=== PATIENT | female | born 1955 | race Caucasian/White ===

== ENCOUNTER 2018-02-22 21:41 | Emergency (ER) | payer SELFPAY ==
[~2018-02-22] VITALS: Ht 170.2 cm; Wt 60.0 kg
[~2018-02-22 21:41] MED LIST: Z.0.NO CURRENT MEDS
[2018-02-22 22:21] VITALS: BP 134/69; PULSE 93; RESP 16; TEMP 98.5; O2SAT 98
[2018-02-22] MEDS ORDERED: ACETAMINOPHEN 1000 MG/100 ML 65 ML IV ONE (22:45)
--- NOTE | 2018-02-22 23:44 | PD ---
HPI Chief Complaint: Hip Injury Time Seen by Provider: 22:27 Travel History International Travel<30 days: No Contact w/Intl Traveler<30days: No Traveled to known affect area: No History of Present Illness HPI Patient is a 62-year-old female presenting to the emergency department for evaluation of right hip pain after she sustained a mechanical fall earlier this afternoon. Patient states she was playing with her cat and was running, subsequently snagging her left foot on a thin metal pipe that she did not see. She reports that she fell forward hitting her head on the concrete and landing on her right side, causing pain to her right lower leg and right hip. Patient is able to ambulate and bear weight. She reports her pain is a 7 out of 10, the pain is improved since she initially sustained a fall. Pain is described as sore and aching. Pain is exacerbated with walking. She denies any loss of consciousness, she states that she was able to get back up on her own. She does report drinking 2 beers this afternoon. Patient denies any headache, dizziness, nausea, vomiting, chest pain, shortness of breath. PFSH Past Medical History Medical History: Denies Significant Hx Influenza Vaccination: No Menopausal: Yes Tubal Ligation: Yes Social History Alcohol Use: Yes (OCCASIONALLY BEER) Tobacco Use: Yes Substance Use: No Allergies-Medications (Allergen,Severity, Reaction): Coded Allergies: No Known Allergies (Verified Adverse Reaction, Unknown, 02/22/18) Reported Meds & Prescriptions Reported Meds & Active Scripts Active No Active Prescriptions or Reported Medications Review of Systems Except as stated in HPI: all other systems reviewed are Neg Musculoskeletal: Positive: Myalgias, Arthralgias, Pain Skin: Positive Other, No Change in Pigmentation, No Lesions Physical Exam Narrative GENERAL: Well-developed, well-nourished, alert elderly female. Presenting in no acute distress. Patient smells of alcohol. SKIN: Warm and dry. Abrasion to left forehead HEAD: Atraumatic. Normocephalic. EYES: Pupils equal and round. No scleral icterus. No injection or drainage. ENT: No nasal bleeding or discharge. Mucous membranes pink and moist. NECK: Trachea midline. No JVD. CARDIOVASCULAR: Regular rate and rhythm. RESPIRATORY: No accessory muscle use. Clear to auscultation. Breath sounds equal bilaterally. GASTROINTESTINAL: Abdomen soft, non-tender, nondistended. Hepatic and splenic margins not palpable. MUSCULOSKELETAL: Extremities without clubbing, cyanosis, or edema. No obvious deformities. NEUROLOGICAL: Awake and alert. No obvious cranial nerve deficits. Motor grossly within normal limits. Five out of 5 muscle strength in the arms and legs. Normal speech. PSYCHIATRIC: Appropriate mood and affect; insight and judgment normal. Data Data Last Documented VS Vital Signs Date Time Temp Pulse Resp B/P (MAP) Pulse Ox O2 Delivery O2 Flow Rate FiO2 02/22/18 22:21 98.5 93 16 134/69 (90) 98 Orders Orders Alcohol (Ethanol) (02/22/18 22:37) Hip, Uni(Ap&Lat) W Ap Pelvis (02/22/18 ) Tibia/Fibula (Ap/Lat) (02/22/18 ) Acetaminophen 1000 Mg/100 Ml (Ofirmev 10 (02/22/18 22:45) Iv Access Insert/Monitor (02/22/18 22:37) Ct Brain W/O Iv Contrast(Rout) (02/23/18 ) Labs Laboratory Tests Test 02/22/18 23:10 Ethyl Alcohol Level 57 MG/DL MDM Medical Decision Making Medical Screen Exam Complete: Yes Emergency Medical Condition: Yes Interpretation(s) Last Impressions Head CT 02/23/18 0000 Signed Impressions: Service Date/Time: Friday, February 23, 2018 00:55 - CONCLUSION: No acute disease. Rogers Jay Jr., MD Tibia/Fibula X-Ray 02/22/18 0000 Signed Impressions: Service Date/Time: February 23:39 - CONCLUSION: Unremarkable examination of the left tibia. Rogers Jay Jr., MD Hip and Pelvis X-Ray 02/22/18 0000 Signed Impressions: Service Date/Time: February 23:36 - CONCLUSION: Unremarkable examination of the left hip. Rogers Jay Jr., MD Laboratory Tests Test 02/22/18 23:10 Ethyl Alcohol Level 57 MG/DL Vital Signs Date Time Temp Pulse Resp B/P (MAP) Pulse Ox O2 Delivery O2 Flow Rate FiO2 02/22/18 22:21 98.5 93 16 134/69 (90) 98 Differential Diagnosis Fracture versus sprain versus strain versus contusion versus less likely hemorrhage versus other Narrative Course Patient is a 62-year-old female presenting for evaluation of hip pain after she sustained a mechanical fall. Patient smells of alcohol, she reported to beers earlier in the day. Will check alcohol level and an x-ray of the hip as well as the tibia. If there is no suspicion of a fracture we will proceed with the CT scan of the brain. Patient has no focal deficits on exam. She is ambulatory and can bear weight. Alcohol level is 57 CT scan the brain shows no acute abnormalities X-ray of the left hip and left tibia/fibula is with no acute abnormalities. Patient is encouraged to apply warm heat to the affected area, continue range of motion exercises take acetaminophen or ibuprofen as needed and as directed for pain. She should follow-up with a primary doctor or return to emergency department any new or worsening symptoms. Patient stable for discharge. Diagnosis Primary Impression: Hip pain Qualified Codes: M25.552 - Pain in left hip Additional Impressions: Fall Qualified Codes: W19.XXXA - Unspecified fall, initial encounter Head injury without concussion or intracranial hemorrhage Qualified Codes: S09.90XA - Unspecified injury of head, initial encounter Alcohol intoxication Qualified Codes: F10.920 - Alcohol use, unspecified with intoxication, uncomplicated Referrals: [facility] Primary Care Physician Patient Instructions: General Instructions, Head Injury (ED), Hip Pain (ED) Additional Instructions: Follow-up with your primary doctor Apply warm heat to affected area, continue range of motion exercises, avoid bed rest, avoid exacerbating activities Take [id number] acetaminophen or ibuprofen as needed and as directed for pain Return to emergency department for any new or worsening symptoms Avoid excessive intake of alcohol Med/Other Pt SpecificInfo: No Meds Exist/No RX given Scripts No Active Prescriptions or Reported Meds Disposition: 01 DISCHARGE HOME Condition: Stable Josette Rodriguez February 22, 2018 23:44
--- NOTE | 2018-02-23 00:07 | RADRPT ---
EXAM DATE/TIME: 02/22/2018 23:36 [facility] COMPARISON: No previous studies available for comparison. INDICATIONS : Patient complains of left hip pain status post fall. MEDICAL HISTORY : None. SURGICAL HISTORY : None. ENCOUNTER: Initial ACUITY: 1 day PAIN SCORE: 7/10 LOCATION: Left Hip FINDINGS: Examination of the left hip was performed with AP Pelvis. The primary and secondary trabecular patte rn of the femoral neck is intact. The hip joint is of normal width without significant sclerosis or bony hypertrophy. The acetabulum is grossly intact. CONCLUSION: Unremarkable examination of the left hip. Rogers Jay Jr., MD on February 23, 2018 at 0:06 Board Certified Radiologist. This report was verified electronically.
--- NOTE | 2018-02-23 00:08 | RADRPT ---
EXAM DATE/TIME: 02/22/2018 23:39 [facility] COMPARISON: No previous studies available for comparison. INDICATIONS : Patient complains of left Tib/Fib pain status post fall. MEDICAL HISTORY : None. SURGICAL HISTORY : None. ENCOUNTER: Initial ACUITY: 1 day PAIN SCORE: 7/10 LOCATION: Left Tib/Fib FINDINGS: Two view examination of the left tibia demonstrates no evidence of fracture or dislocation. Bony min eralization is normal. The soft tissue structures are intact. CONCLUSION: Unremarkable examination of the left tibia. Rogers Jay Jr., MD on February 23, 2018 at 0:06 Board Certified Radiologist. This report was verified electronically.
--- NOTE | 2018-02-23 01:20 | RADRPT ---
EXAM DATE/TIME: 02/23/2018 00:55 [facility] COMPARISON: No previous studies available for comparison. INDICATIONS : Trauma, fall. RADIATION DOSE: 56.35 CTDIvol (mGy) MEDICAL HISTORY : None SURGICAL HISTORY : None. ENCOUNTER: Initial ACUITY: 1 day PAIN SCALE: 5/10 LOCATION: cranial TECHNIQUE: Multiple contiguous axial images were obtained of the head. Using automated exposure control and adj ustment of the mA and/or kV according to patient size, radiation dose was kept as low as reasonably a chievable to obtain optimal diagnostic quality images. DICOM format image data is available electro nically for review and comparison. FINDINGS: CEREBRUM: The ventricles are normal for age. No evidence of midline shift, mass lesion, hemorrhage or acute in farction. No extra-axial fluid collections are seen. POSTERIOR FOSSA: The cerebellum and brainstem are intact. The 4th ventricle is midline. The cerebellopontine angle i s unremarkable. EXTRACRANIAL: The visualized portion of the orbits is intact. SKULL: The calvaria is intact. No evidence of skull fracture. CONCLUSION: No acute disease. Rogers Jay Jr., MD on February 23, 2018 at 1:17 Board Certified Radiologist. This report was verified electronically.
[2018-02-23 06:47] VITALS: BP 130/68
== END 2018-02-23 06:49 | disposition home or self-care (01) ==
LOC: NEPD 21:41
DX: M25.551 Pain in right hip (principal); S09.90XA Unspecified injury of head, initial encounter; F10.920 Alcohol use, unspecified with intoxication, uncomplicated; W19.XXXA Unspecified fall, initial encounter; Y90.3 Blood alcohol level of 60-79 mg/100 ml; Z72.0 Tobacco use
CPT/HCPCS: 70450; 73502; 73590; 80307; 96374; 99285; J0131

== ENCOUNTER 2018-05-18 14:45 | Inpatient (IN) ==
--- NOTE | 2018-05-18 18:45 | XR ---
EXAM DATE: 05/18/2018 6:40 PM EDT AGE/SEX: 63 years / Female INDICATIONS: Inflammation. Swelling. Fall. CLINICAL DATA: This is the patient's initial encounter. Patient reports that signs and symptoms have been present for 1 day and indicates a pain score of 10/10. MEDICAL/SURGICAL HISTORY: None. None. COMPARISON: [facility] [place]FIBUL[place] LEFT (AP/LAT), 02/22/2018. . FINDINGS: There is an acute lateral tibial plateau fracture with mild depression and lateral downsloping. Large lipohemarthrosis present. No other acute fracture. There is a tiny, old avulsion fracture of the fibular styloid. CONCLUSION: Acute lateral tibial plateau fracture with mild compression and lateral downsloping. Electronically signed by: Collin Diamond MD 05/18/2018 6:44 PM EDT
--- NOTE | 2018-05-18 19:53 | XR ---
EXAM DATE: 05/18/2018 7:50 PM EDT AGE/SEX: 63 years / Female INDICATIONS: Fall. Left rib pain. CLINICAL DATA: This is the patient's initial encounter. Patient reports that signs and symptoms have been present for 1 day and indicates a pain score of 5/10. MEDICAL/SURGICAL HISTORY: None. None. COMPARISON: No prior exams available for comparison. FINDINGS: A single AP view of the chest demonstrates the lungs to be symmetrically aerated without evidence of mass, infiltrate or effusion. The cardiomediastinal contours are unremarkable. Osseous structures a re grossly intact. CONCLUSION: No acute cardiopulmonary disease demonstrated. Electronically signed by: Collin Diamond MD 05/18/2018 7:51 PM EDT
[2018-05-18 20:42] LABS: Baso # (Auto) 0.1 th/mm3 (0.0-0.2); Baso % (Auto) 0.5 % (0.0-2.0); Eos # (Auto) 0.3 th/mm3 (0.0-0.4); Eos % (Auto) 2.8 % (0.0-4.0); Hematocrit 35.8 % (35.0-46.0); Hemoglobin 11.9 gm/dL (11.6-15.3); Lymph % (Auto) 8.8 % (9.0-44.0); Mean Corpuscular HGB Conc 33.4 % (32.0-36.0); Mean Corpuscular Hemoglobin 30.9 pg (27.0-34.0); Mean Corpuscular Volume 92.6 fL (80.0-100.0); Mean Platelet Volume 7.9 fL (7.0-11.0); Mono # (Auto) 0.9 th/mm3 (0.0-0.9); Mono % (Auto) 8.7 % (0.0-8.0); Neut # (Auto) 8.6 th/mm3 (1.8-7.7); Neut % (Auto) 79.2 % (16.0-70.0); Platelet Count 322 th/mm3 (150-450); Red Blood Count 3.86 mil/mm3 (4.00-5.30); White Blood Count 10.9 th/mm3 (4.0-11.0)
[2018-05-18 20:52] LABS: Activated Partial Thrombo Time 24.7 sec (24.3-30.1); Prothrombin Time 10.3 sec (9.8-11.6)
[2018-05-18] MEDS ORDERED: Bisacodyl 10 MG Supp RECTAL PRN (20:57)
[2018-05-18] MEDS ORDERED: Temazepam 15 MG Capsule PO PRN (20:57)
--- NOTE | 2018-05-18 20:59 | P.HPIM ---
History of Present Illness Primary Care Physician: No Primary Care Physician History of Present Illness: This is a 63-year-old female with no significant PMH who presented to the ER with left knee pain after fall. Patient was seen in the ER earlier today for complaints of head lice and was d/c'd on Bactrim, states she was walking home when she tripped over a pipe on the sidewalk. No head trauma or LOC. Reports severe left knee pain, 8/10, non-radiating, worse w/ movement. States she took 2 Tylenol prior to arrival w/ improvement. BP 159/76, HR 92, O2 sat 100% on RA , Afebrile. CBC essentially unremarkable. INR 1.0. Chemistry unremarkable except for GFR 83. Knee X-ray with acute lateral tibial plateau fracture with mild compression and lateral downsloping. CXR no acute findings. Dr. Rangel consulted, plan is for surgical intervention in am. - Diagnosis (1) Fall (2) Knee fracture, left (3) Head lice Review of Systems PAST FAMILY HISTORY: Reviewed. No h/o DM or CAD All other systems reviewed negative except as stated in HPI PMFSH - History History Provided By: Patient - Family History Family History: Family History (Last Updated 05/18/18 @ 22:26 by Fay Roldan MD) Other Family history normal - Tobacco History Tobacco Use In Past 30 Days: Yes Smoking Status: Smoker, status unknown Tobacco Type: Cigarettes - Alcohol History How Often Do You Have a Drink Containing Alcohol: 4 or more times a week - Substance Use History Substance History: No History of Abuse - Travel History Recent Travel in the [place] Within the Last 8 Weeks: No Recent Travel Out of the Country Within the Last 8 Weeks: No - Immunization History Tetanus Immunization: Unsure Hx Influenza Vaccine This Season: No Medications and Allergies Active Medications: Active Medications Acetaminophen (Tylenol) 650 mg PO Q4H PRN PRN Reason: Temp > 100.4 Hydrocodone Bitart/Acetaminophen (Lissie 5/325) 1 tab PO Q4H PRN PRN Reason: PAIN 3-5 Al Hydroxide/Mg Hydroxide (Milk Of Magnesia Liq) 30 ml PO Q12H PRN PRN Reason: Mild Constipation Bisacodyl (Dulcolax Supp) 10 mg RECTAL DAILY PRN PRN Reason: SEVERE CONSITIPATION Sodium Chloride (Ns Inj) 1,000 mls @ 100 mls/hr IV.CONT .Q10H CAMILA Lactulose (Lactulose Liq) 30 ml PO DAILY PRN PRN Reason: SEVERE CONSITIPATION Morphine Sulfate (Morphine Inj) 2 mg IV.PUSH Q4H PRN PRN Reason: PAIN 6-10 Ondansetron HCl (Zofran Inj) 4 mg IV.PUSH Q6H PRN PRN Reason: NAUSEA OR VOMITING Permethrin (Elimite 5% Cream) 1 applicatio TOPICAL ONCE ONE Stop: 05/18/18 20:56 Senna/Docusate Sodium (Annita-Colace) 1 tab PO BID CAMILA Sennosides (Senokot) 17.2 mg PO Q12H PRN PRN Reason: Moderate Constipation Sodium Chloride (Ns Flush) 2 ml IV.FLUSH UNSCH PRN PRN Reason: FLUSH AFTER USING IV ACCESS Temazepam (Restoril) 15 mg PO HS PRN PRN Reason: INSOMNIA Allergies Allergy/AdvReac Type Severity Reaction Status Date / Time No Known Allergies Allergy Verified 05/18/18 18:29 Exam Vital signs: Vital Signs 05/18/18 16:23 05/18/18 20:30 Temperature 98.3 F Pulse Rate 92 H Respiratory Rate 18 Blood Pressure 159/76 H Pulse Oximetry 100 98 Narrative: PE: GENERAL: Very pleasant middle-aged white female in no acute distress. HEENT: PERRLA, EOMI. No scleral icterus or conjunctival pallor. No lid lag or facial droop. CARDIOVASCULAR: Regular rate and rhythm. No obvious murmurs to auscultation. No chest tenderness to palpation. RESPIRATORY: No obvious rhonchi or wheezing. Clear to auscultation. Breath sounds equal bilaterally. GASTROINTESTINAL: Abdomen soft, non-tender, nondistended. BS normal. MUSCULOSKELETAL: Extremities without clubbing, cyanosis, or edema. No obvious deformities. Decreased ROM of LLE due to pain. NEUROLOGICAL: Awake, alert and oriented x4. No focal neurologic deficits. Moving both upper and lower extremities spontaneously. Results - Labs CBC & Chem 7: 05/18/18 20:25 05/18/18 20:25 Labs: Short CBC 05/18/18 Range/Units 20:25 WBC 10.9 (4.0-11.0) th/mm3 Hgb 11.9 (11.6-15.3) gm/dL Hct 35.8 (35.0-46.0) % Plt Count 322 (150-450) th/mm3 - Imaging Impressions Knee X-Ray 05/18/18 00:00 CONCLUSION: Acute lateral tibial plateau fracture with mild compression and lateral downsloping. Chest X-Ray 05/18/18 19:28 CONCLUSION: No acute cardiopulmonary disease demonstrated. Caprini VTE Risk Assessment Caprini VTE Risk Assessment: No/Low Risk (score <= 1) Caprini Risk Assessment Model: Point Value = 1 Point Value = 2 Point Value = 3 Point Value = 5 Age 41-60 Minor surgery BMI > 25 kg/m2 Swollen legs Varicose veins or History of unexplained or recurrent spontaneous Oral contraceptives or hormone replacement Sepsis (< 1 month) Serious lung disease, including pneumonia (< 1 month) Abnormal pulmonary function Acute myocardial infarction Congestive heart failure (< 1 month) History of inflammatory bowel disease Medical patient at bed rest Age 61-74 Arthroscopic surgery Major open surgery (> 45 min) Laparoscopic surgery (> 45 min) Malignancy Confined to bed (> 72 hours) Immobilizing plaster cast Central venous access Age >= 75 History of VTE Family history of VTE Factor V Leiden Prothrombin [id number] Lupus anticoagulant Anticardiolipin antibodies Elevated serum homocysteine Heparin-induced thrombocytopenia Other congenital or acquired thrombophilia Stroke (< 1 month) Elective arthroplasty Hip, pelvis, or leg fracture Acute spinal cord injury (< 1 month) Prophylaxis Regimen: Total Risk Factor Score Risk Level Prophylaxis Regimen 0-1 Low Early ambulation 2 Moderate Order ONE of the following: *Sequential Compression Device (SCD) *Heparin 5000 units SQ BID 3-4 Higher Order ONE of the following medications: *Heparin 5000 units SQ TID *Enoxaparin/Lovenox 40 mg SQ daily (WT < 150 kg, CrCl > 30 mL/min) *Enoxaparin/Lovenox 30 mg SQ daily (WT < 150 kg, CrCl > 10-29 mL/min) *Enoxaparin/Lovenox 30 mg SQ BID (WT < 150 kg, CrCl > 30 mL/min) AND/OR *Sequential Compression Device (SCD) 5 or more Highest Order ONE of the following medications: *Heparin 5000 units SQ TID (Preferred with Epidurals) *Enoxaparin/Lovenox 40 mg SQ daily (WT < 150 kg, CrCl > 30 mL/min) *Enoxaparin/Lovenox 30 mg SQ daily (WT < 150 kg, CrCl > 10-29 mL/min) *Enoxaparin/Lovenox 30 mg SQ BID (WT < 150 kg, CrCl > 30 mL/min) AND *Sequential Compression Device (SCD) Assessment and Plan - Assessment (1) Fall Code(s): W19.XXXA - Unspecified fall, initial encounter Status: Acute (2) Knee fracture, left Status: Acute (3) Head lice Code(s): B85.0 - Pediculosis due to Pediculus humanus capitis Status: Acute - Plan A/P: 1. Fall: s/p mechanical fall, no head trauma or LOC, no other injuries reported. 2. Left Knee Fx: X-ray w/ acute lateral tibial plateau fracture with mild compression and lateral downsloping, images reviewed. Dr. Rangel consulted, plan is for surgical intervention in a.m. NPO, IVF, analgesics/antiemetics as needed. 3. Head Lice: seen in ER earlier today for c/o head lice, +live lice noted on exam. D/c'd on Bactrim, will give Permethrin. 4. DVT Prophylaxis: Anticoagulation post op 5. Social work for d/c planning as needed 6. Case discussed w/ ER physician at length, labs/records/imaging reviewed by me.
--- NOTE | 2018-05-18 21:00 | ED ---
HPI General Chief Complaint: Extremity Injury, Lower Stated Complaint: fall Time Seen by Provider: 05/18/18 18:41 Source: patient Mode of arrival: ambulatory Limitations: no limitations History of Present Illness HPI Narrative: 63 yo f patient evidently struck her left leg into a pipe while walking along a sidewalk and then fell to the ground. This happened several hours prior to ER arrival. She has had continuous pain throughout the course of the day which has gradually worsened. The patient was able to ambulate after the injury and ambulated to the ED. No other injury to report. MD complaint: knee injury Onset (ago): hour(s) (8) Type of Injury: blunt Severity: moderate Relieving factors: immobilization Exacerbating factors: weight bearing, movement and palpation Context: fall and direct blow Associated symptoms: numbness Other symptoms: none Related Data Previous Rx's Medication Instructions Recorded sulfamethoxazole-trimethoprim 1 tab PO BID 10 Days #20 tab 05/18/18 [Bactrim DS] Allergies Allergy/AdvReac Type Severity Reaction Status Date / Time No Known Allergies Allergy Verified 05/18/18 18:29 Review of Systems ROS: all other systems reviewed are negative PMFSH Social History Social History Substance History: No History of Abuse Smoking Status: Smoker, status unknown Tobacco Type: Cigarettes How Often Do You Have a Drink Containing Alcohol: 4 or more times a week Recent Travel in [facility] within the Last 8 Weeks: No Recent Out of Country Travel within the Last 8 Weeks: No Immunization History Tetanus Immunization: Unsure Hx Influenza Vaccine This Season: No Exam Narrative Exam Narrative: GENERAL: 63-year-old female pleasant well-nourished well- developed SKIN: Focused skin assessment warm/dry. HEAD: Atraumatic. Normocephalic. EYES: Pupils equal and round. No scleral icterus. No injection or drainage. ENT: No nasal bleeding or discharge. Mucous membranes pink and moist. NECK: Trachea midline. No JVD. CARDIOVASCULAR: Regular rate and rhythm. No murmur appreciated. RESPIRATORY: No accessory muscle use. Clear to auscultation. Breath sounds equal bilaterally. GASTROINTESTINAL: Abdomen soft, non-tender, nondistended. Hepatic and splenic margins not palpable. MUSCULOSKELETAL: Tenderness palpation overlying the patella and tibial plateau on the left side. There is generalized swelling involving the left knee. Distal pulses are intact. The patient is ambulatory with antalgic gout. NEUROLOGICAL: Awake and alert. No obvious cranial nerve deficits. Motor grossly within normal limits. Normal speech. PSYCHIATRIC: Appropriate mood and affect; insight and judgment normal. Course Initial Documented Vital Signs Temperature 98.3 F 05/18/18 16:23 Pulse Rate 92 H 05/18/18 16:23 Respiratory Rate 18 05/18/18 16:23 Blood Pressure 159/76 H 05/18/18 16:23 Pulse Oximetry 100 05/18/18 16:23 Last Documented Vital Signs Temperature 98.3 F 05/18/18 16:23 Pulse Rate 92 H 05/18/18 16:23 Respiratory Rate 18 05/18/18 16:23 Blood Pressure 159/76 H 05/18/18 16:23 Pulse Oximetry 98 05/18/18 20:30 Medical Decision Making MDM Narrative Medical decision making narrative: Patient has a tibial plateau fracture. She will be admitted for operative repair. Discussed with Dr. Juan Carlos Milligan's NUPUR. Case discussed with Dr. Roldan for the hospitalist service. Immobilizer added. CT knee added per ortho request. Lab Data Lab results reviewed: Yes I reviewed the patient's lab results. Lab results narrative: Available labs were reviewed. Major abnormality involving competence of panel is considered low probability. Result diagrams: 05/18/18 20:25 05/18/18 20:25 Lab Results 05/18/18 05/18/18 Range/Units 20:25 20:25 WBC 10.9 (4.0-11.0) th/mm3 RBC 3.86 L (4.00-5.30) mil/mm3 Hgb 11.9 (11.6-15.3) gm/dL Hct 35.8 (35.0-46.0) % MCV 92.6 (80.0-100.0) fL MCH 30.9 (27.0-34.0) pg MCHC 33.4 (32.0-36.0) % RDW 13.0 (11.6-17.2) % Plt Count 322 (150-450) th/mm3 MPV 7.9 (7.0-11.0) fL Neut % (Auto) 79.2 H (16.0-70.0) % Lymph % (Auto) 8.8 L (9.0-44.0) % [place] % (Auto) 8.7 H (0.0-8.0) % Eos % (Auto) 2.8 (0.0-4.0) % Baso % (Auto) 0.5 (0.0-2.0) % Neut # (Auto) 8.6 H (1.8-7.7) th/mm3 Lymph # (Auto) 1.0 (1.0-4.8) th/mm3 [place] # (Auto) 0.9 (0.0-0.9) th/mm3 Eos # (Auto) 0.3 (0.0-0.4) th/mm3 Baso # (Auto) 0.1 (0.0-0.2) th/mm3 WBC Differential . Differential Comment Auto diff final PT 10.3 (9.8-11.6) sec INR 1.0 Ratio APTT 24.7 (24.3-30.1) sec Imaging Data Attestation: I personally reviewed and interpreted this imaging study as follows : My impression: Tibial plateau fracture present Radiologist's impression: Knee X-Ray 05/18/18 00:00 CONCLUSION: Acute lateral tibial plateau fracture with mild compression and lateral downsloping. Chest X-Ray 05/18/18 19:28 CONCLUSION: No acute cardiopulmonary disease demonstrated. Discharge Plan Discharge Disposition Patient Disposition: 30 Still Patient Physicians Team ED Provider: Santiago Andrade Primary Care Provider: Primary Care Hilda Retana Attending Provider: Fay Roldan Discharge Interventions Interventions: Vital Signs Last Done: 05/18/18 16:23 Status ED Status: Admitted Patient
[2018-05-18 21:12] LABS: Alanine Aminotransferase 18 U/L (10-53)
[2018-05-18 21:14] LABS: Albumin 3.3 g/dL (3.4-5.0); Alkaline Phosphatase 76 U/L (45-117); Anion Gap 6 meq/L (5-15); Aspartate Aminotransferase 22 U/L (15-37); Blood Urea Nitrogen 9 mg/dL (7-18); Calcium 8.6 mg/dL (8.5-10.1); Carbon Dioxide 25.8 meq/L (21.0-32.0); Chloride 105 meq/L (98-107); Glomerular Filtration Rate 83 mL/min (>89); Glucose,Random 111 mg/dL (74-106); Potassium 3.7 meq/L (3.5-5.1); Sodium 137 meq/L (136-145); Total Protein 8.1 g/dL (6.4-8.2)
[2018-05-18] MEDS ORDERED: Morphine Inj 4 MG/ML Vial IV.PUSH PRN (21:45)
--- NOTE | 2018-05-18 22:27 | CT ---
EXAM DATE: 05/18/2018 10:17 PM EDT AGE/SEX: 63 years / Female INDICATIONS: Trauma; fall. CLINICAL DATA: This is the patient's initial encounter. Patient reports that signs and symptoms have been present for 1 day and indicates a pain score of 5/10. MEDICAL/SURGICAL HISTORY: None. None. RADIATION DOSE: 7.29 CTDI (mGy) COMPARISON: No prior exams available for comparison. TECHNIQUE: Multiple contiguous axial images were acquired using a multirow detector CT scanner witho ut contrast. Multiplanar reconstruction was performed in the sagittal and coronal planes. Using aut omated exposure control and adjustment of the mA and/or kV according to patient size, radiation dose was kept as low as reasonably achievable to obtain optimal diagnostic quality images. DICOM format i mage data is available electronically for review and comparison. FINDINGS: There is a mildly comminuted lateral tibial plateau fracture. There is associated slight gradual depr ession centrally of the articular surface focally, approximately 1 mm of step-off is present. Other bones are intact. No subluxations. Large lipohemarthrosis present. CONCLUSION: Lateral tibial plateau fracture with slight depression and no more than 1 mm of focal rocio p-off. Electronically signed by: Collin Diamond MD 05/18/2018 10:25 PM EDT
[2018-05-19] MEDS ORDERED: Chlorhexidine Gluconate 2% 1 Pack (2 Cloths) TOPICAL SCH (04:00)
[2018-05-19] MEDS ORDERED: Sodium Chlor 0.9% Inj 500 ML IV.SIG SCH (04:00)
[2018-05-19] MEDS: Sod Chloride 0.9% Inj 1,000 ML IV.CONT SCH ×2 (06:00→08:36)
[2018-05-19 06:21] LABS: Baso # (Auto) 0.1 th/mm3 (0.0-0.2); Baso % (Auto) 0.7 % (0.0-2.0); Eos # (Auto) 0.2 th/mm3 (0.0-0.4); Eos % (Auto) 2.7 % (0.0-4.0); Hematocrit 31.6 % (35.0-46.0); Hemoglobin 10.6 gm/dL (11.6-15.3); Lymph # (Auto) 0.9 th/mm3 (1.0-4.8); Lymph % (Auto) 11.3 % (9.0-44.0); Mean Corpuscular HGB Conc 33.6 % (32.0-36.0); Mean Corpuscular Hemoglobin 31.1 pg (27.0-34.0); Mean Corpuscular Volume 92.4 fL (80.0-100.0); Mean Platelet Volume 7.9 fL (7.0-11.0); Mono # (Auto) 0.8 th/mm3 (0.0-0.9); Mono % (Auto) 10.6 % (0.0-8.0); Neut # (Auto) 5.9 th/mm3 (1.8-7.7); Neut % (Auto) 74.7 % (16.0-70.0); Platelet Count 262 th/mm3 (150-450); Red Blood Count 3.42 mil/mm3 (4.00-5.30); White Blood Count 7.8 th/mm3 (4.0-11.0)
[2018-05-19 06:34] LABS: Albumin 2.6 g/dL (3.4-5.0); Anion Gap 6 meq/L (5-15); Aspartate Aminotransferase 12 U/L (15-37); Blood Urea Nitrogen 6 mg/dL (7-18); Calcium 7.6 mg/dL (8.5-10.1); Carbon Dioxide 28.5 meq/L (21.0-32.0); Chloride 107 meq/L (98-107); Glomerular Filtration Rate Greater Than 89 mL/min (>89); Glucose,Random 107 mg/dL (74-106); Potassium 3.4 meq/L (3.5-5.1); Sodium 141 meq/L (136-145)
[2018-05-19 06:38] LABS: Alanine Aminotransferase 15 U/L (10-53); Alkaline Phosphatase 63 U/L (45-117); Total Protein 6.6 g/dL (6.4-8.2)
[2018-05-19] MEDS: [UNRECOGNIZED DRUG - REMARK] OTHER SCH ×15 (08:28→16:07)
--- NOTE | 2018-05-19 08:32 | P.CONOP ---
[facility] Orthopedics Consult Note - [facility] Consult date: 05/19/18 Consult reason: fracture Chief complaint: tibia fracture Narrative: Patient is a 63-year-old white female who presented to the emergency department after suffering a fall on the sidewalk. He previously been in the emergency department that day for diagnosis of head lice. After being discharged she was walking home she tripped over the sidewalk and fell. She reported immediate left knee pain. She states she was unable to wait. She reports she has swelling and pain within the knee. He denies any numbness tingling or radiation of symptoms. Denies any other pain in any other part of her body. States that she denies any loss of consciousness or dizziness. She reports that she is homeless. Currently she is resting comfortably with no complaints. Review of Systems Patient review of systems are positive for head lice as well as pain in the left knee with limited motion and swelling. Patient denies fevers, weight loss, headache, visual changes, hearing loss, chest pain, palpitations, shortness of breath, nausea, vomiting, urinary changes , neck or back pain, skin rashes, weakness or numbness of extremities, or depression. [facility] - History History Provided By: Patient - Medical / Surgical Hx Neg / Unobtainable Medical Problems Denied: Yes Surgical History: No Previous Surgery - Medical History Medical History: Medical History (Last Updated 05/19/18 @ 08:26 by HAL Flynn) Head lice - Family History Family History: Family History (Last Updated 05/18/18 @ 22:26 by Fay Roldan MD) Other Family history normal - Tobacco History Tobacco Use In Past 30 Days: Yes Smoking Status: Smoker, status unknown Tobacco Type: Cigarettes - Alcohol History How Often Do You Have a Drink Containing Alcohol: 4 or more times a week - Substance Use History Substance History: No History of Abuse - Travel History Recent Travel in the [place] Within the Last 8 Weeks: No Recent Travel Out of the Country Within the Last 8 Weeks: No - Immunization History Tetanus Immunization: Unsure Hx Influenza Vaccine This Season: No Medications and Allergies Active Medications: Active Medications Acetaminophen (Tylenol) 650 mg PO Q4H PRN PRN Reason: Temp > 100.4 Hydrocodone Bitart/Acetaminophen ([place] 5/325) 1 tab PO Q4H PRN PRN Reason: PAIN 3-5 Al Hydroxide/Mg Hydroxide (Milk Of Maia Lyonsq) 30 ml PO Q12H PRN PRN Reason: Mild Constipation Bisacodyl (Dulcolax Supp) 10 mg RECTAL DAILY PRN PRN Reason: SEVERE CONSITIPATION Chlorhexidine Gluconate (Chlorhexidine 2% Cloth) 3 pack [facility] Stop: 05/22/18 03:53 Sodium Chloride (Ns Inj) 1,000 mls @ 100 mls/hr IV.CONT .Q10H [facility] Lactated Ringer's (Lr 1000 Ml Inj) 1,000 mls @ 30 mls/hr IV.SIG .Q24H [facility] Stop: 05/22/18 03:53 Sodium Chloride (Ns Inj) 500 mls @ 30 mls/hr IV.SIG .Q10H [facility] Stop: 05/22/18 03:53 Lactulose (Lactulose Liq) 30 ml PO DAILY PRN PRN Reason: SEVERE CONSITIPATION Miscellaneous Information (Mis Nursing Information) 1 each OTHER Q15M [facility] Morphine Sulfate (Morphine Inj) 2 mg IV.PUSH Q4H PRN PRN Reason: PAIN 6-10 Ondansetron HCl (Zofran Inj) 4 mg IV.PUSH Q6H PRN PRN Reason: NAUSEA OR VOMITING Povidone Iodine (Betadine 5% Antisepsis Kit) 1 applicatio EACH [facility] Stop: 05/22/18 03:53 Senna/Docusate Sodium (Annita-Colace) 1 tab PO BID [facility] Sennosides (Senokot) 17.2 mg PO Q12H PRN PRN Reason: Moderate Constipation Sodium Chloride (Ns Flush) 2 ml IV.FLUSH UNSCH PRN PRN Reason: FLUSH AFTER USING IV ACCESS Temazepam (Restoril) 15 mg PO HS PRN PRN Reason: INSOMNIA Trimethoprim/Sulfamethoxazole (Bactrim Ds) 1 tab PO Q12HR [facility] Stop: 05/29/18 03:05 Allergies Allergy/AdvReac Type Severity Reaction Status Date / Time No Known Allergies Allergy Verified 05/18/18 18:29 Exam Vital signs: Vital Signs 05/18/18 16:23 05/18/18 20:30 05/18/18 21:30 Temperature 98.3 F Pulse Rate 92 H 66 Respiratory Rate 18 18 Blood Pressure 159/76 H 165/79 H Pulse Oximetry 100 98 99 05/19/18 00:00 05/19/18 04:00 Temperature 98.2 F 98.6 F Pulse Rate 68 97 H Respiratory Rate 18 17 Blood Pressure 158/75 H 141/66 H Pulse Oximetry 99 99 Intake & Output 05/18/18 05/19/18 05/19/18 18:59 06:59 18:59 Output Total 400 / 400 Balance -400 / -400 Output: Urine 400 / 400 Other: # Voids 2 - Constitutional no acute distress, average body habitus - Routine HEENT Exam Head: Present: normocephalic, atraumatic, scalp tenderness Eye: Present: EOMI, PERRL, normal accommodation ENT: Present: mucous membranes moist, external ear normal Comments: noticeable head lice infestation of hair. hearing intact bilaterally - Routine Neck Exam Present: supple, full ROM. Absent: lymphadenopathy - Routine Respiratory Exam Absent: accessory muscle use, respiratory distress, wheezes - Routine Cardiovascular Exam Absent: murmur (no grade 4 murmur present) - Routine Abdominal Exam Present: soft. Absent: tenderness - Routine Extremities Exam Comments: Left leg: Knee brace is in place. Moderate swelling of the knee and lower leg. Compartments soft. Tender to palpation around the knee. Full sensation distally with strong dorsiflexion Full motion of bilateral arms as well as right leg with no pain. Full sensation distally the remaining - Routine Skin Exam Present: intact. Absent: erythema - Routine Neurological Exam Present: alert, oriented X3, CN II-XII intact Results - Labs Result Diagrams: 05/19/18 05:30 05/19/18 05:30 Labs: Laboratory Results - last 24 hr 05/18/18 05/18/18 05/18/18 20:25 20:25 20:25 WBC 10.9 RBC 3.86 L Hgb 11.9 Hct 35.8 MCV 92.6 MCH 30.9 MCHC 33.4 RDW 13.0 Plt Count 322 MPV 7.9 Neut % (Auto) 79.2 H Lymph % (Auto) 8.8 L [place] % (Auto) 8.7 H Eos % (Auto) 2.8 Baso % (Auto) 0.5 Neut # (Auto) 8.6 H Lymph # (Auto) 1.0 [place] # (Auto) 0.9 Eos # (Auto) 0.3 Baso # (Auto) 0.1 WBC Differential . Differential Comment Auto diff final PT 10.3 INR 1.0 APTT 24.7 Sodium 137 Potassium 3.7 Chloride 105 Carbon Dioxide 25.8 Anion Gap 6 BUN 9 Creatinine 0.71 Estimated GFR 83 L Random Glucose 111 H Calcium 8.6 Total Bilirubin 0.3 AST 22 ALT 18 Alkaline Phosphatase 76 Total Protein 8.1 Albumin 3.3 L Blood Type Blood Type Recheck Antibody Screen 05/18/18 05/19/18 05/19/18 20:25 05:30 05:30 WBC 7.8 RBC 3.42 L Hgb 10.6 L Hct 31.6 L MCV 92.4 MCH 31.1 MCHC 33.6 RDW 13.0 Plt Count 262 MPV 7.9 Neut % (Auto) 74.7 H Lymph % (Auto) 11.3 [place] % (Auto) 10.6 H Eos % (Auto) 2.7 Baso % (Auto) 0.7 Neut # (Auto) 5.9 Lymph # (Auto) 0.9 L [place] # (Auto) 0.8 Eos # (Auto) 0.2 Baso # (Auto) 0.1 WBC Differential . Differential Comment Auto diff final PT INR APTT Sodium 141 Potassium 3.4 L Chloride 107 Carbon Dioxide 28.5 Anion Gap 6 BUN 6 L Creatinine 0.62 Estimated GFR Greater than 89 Random Glucose 107 H Calcium 7.6 L D Total Bilirubin 0.5 AST 12 L ALT 15 Alkaline Phosphatase 63 Total Protein 6.6 D Albumin 2.6 L D Blood Type A Positive Blood Type Recheck Antibody Screen Negative - Diagnostic results Imaging: Impressions Knee X-Ray 05/18/18 00:00 CONCLUSION: Acute lateral tibial plateau fracture with mild compression and lateral downsloping. Chest X-Ray 05/18/18 19:28 CONCLUSION: No acute cardiopulmonary disease demonstrated. Knee CT 05/18/18 21:08 CONCLUSION: Lateral tibial plateau fracture with slight depression and no more than 1 mm of focal step-off. Assessment and Plan - Problem List (1) Knee fracture, left Status: Acute - Assessment and Plan 1) Left Tibial Plateau Fracture 2) Head Lice Infestation Treatment options were discussed with the patient regarding the left knee. She does appear to have suffered a left tibial plateau fracture. After reviewing the CT scan, it is relatively well aligned. Due to her lice infestation and the overall appropriate alignment of the fracture, this is something we will likely treat nonoperatively. She will remain strictly nonweightbearing the left leg and maintain her knee brace at all times. Will consult physical therapy to work on gait training with a walker. She remains nonweightbearing the left leg and protect this, it should heal well. However, if she is to bear any weight shifts at all he could necessitate surgical intervention. She will also avoid any quad sets or leg lifts. Will resume her diet today. Will plan on following up on outpatient basis in the office with Dr. Rangel. The patient understands and agrees with the above plan. Also, the above patient was reviewed and discussed with Dr. Rangel he also agrees.
[2018-05-19] MEDS: Senna/Docusate Sodium 8.6/50 MG Tablet PO SCH ×3 (08:36→21:39)
--- NOTE | 2018-05-19 09:33 | ECG ---
Date Performed: 05/19/2018 Time Performed: 06:02:26 PTAGE: 63 years EKG: Sinus rhythm . --- Suspect arm lead reversal - only aVF, V1-V6 analyzed --- Normal ECG based on available leads NO PREVIOUS TRACING DOCTOR: Isiah Stafford Interpretating Date/Time 05/19/2018 09:31:19
[2018-05-19] MEDS: Acetaminophen 325 MG Tablet PO PRN ×3 (10:59→21:43)
--- NOTE | 2018-05-19 13:25 | P.PN ---
Subjective Interval history: Follow-up left tibia plateau fracture/head lice May 19, 2018-patient seen and examined, denies any significant left lower extremity pain. No acute event overnight. Physical Exam Vital signs: Vital Signs 05/18/18 16:23 05/18/18 20:30 05/18/18 21:30 Temperature 98.3 F Pulse Rate 92 H 66 Respiratory Rate 18 18 Blood Pressure 159/76 H 165/79 H Pulse Oximetry 100 98 99 05/19/18 00:00 05/19/18 04:00 05/19/18 08:00 Temperature 98.2 F 98.6 F 98.9 F Pulse Rate 68 97 H 85 Respiratory Rate 18 17 18 Blood Pressure 158/75 H 141/66 H 151/70 H Pulse Oximetry 99 99 97 05/19/18 12:00 Temperature 98.3 F Pulse Rate 86 Respiratory Rate 18 Blood Pressure 129/63 Pulse Oximetry 100 Intake & Output 05/18/18 05/19/18 05/19/18 18:59 06:59 18:59 Output Total 400 / 400 Balance -400 / -400 Weight 63.895 kg Output: Urine 400 / 400 Other: # Voids 2 Weight On Admission 140 kg Narrative: GENERAL: NAD SKIN: Warm and dry. HEAD: Normocephalic. EYES: No scleral icterus. No injection or drainage. NECK: Supple, trachea midline. No JVD or lymphadenopathy. CARDIOVASCULAR: Regular rate and rhythm without murmurs, gallops, or rubs. RESPIRATORY: Breath sounds equal bilaterally. No accessory muscle use. GASTROINTESTINAL: Abdomen soft, non-tender, nondistended. MUSCULOSKELETAL: No cyanosis, or edema. BACK: Nontender without obvious deformity. No CVA tenderness. Results - Labs CBC & Chem 7: 05/19/18 05:30 05/19/18 05:30 Laboratory Results - last 24 hr 05/18/18 05/18/18 05/18/18 20:25 20:25 20:25 WBC 10.9 RBC 3.86 L Hgb 11.9 Hct 35.8 MCV 92.6 MCH 30.9 MCHC 33.4 RDW 13.0 Plt Count 322 MPV 7.9 Neut % (Auto) 79.2 H Lymph % (Auto) 8.8 L [place] % (Auto) 8.7 H Eos % (Auto) 2.8 Baso % (Auto) 0.5 Neut # (Auto) 8.6 H Lymph # (Auto) 1.0 [place] # (Auto) 0.9 Eos # (Auto) 0.3 Baso # (Auto) 0.1 WBC Differential . Differential Comment Auto diff final PT 10.3 INR 1.0 APTT 24.7 Sodium 137 Potassium 3.7 Chloride 105 Carbon Dioxide 25.8 Anion Gap 6 BUN 9 Creatinine 0.71 Estimated GFR 83 L Random Glucose 111 H Calcium 8.6 Total Bilirubin 0.3 AST 22 ALT 18 Alkaline Phosphatase 76 Total Protein 8.1 Albumin 3.3 L Blood Type Blood Type Recheck Antibody Screen 05/18/18 05/19/18 05/19/18 20:25 05:30 05:30 WBC 7.8 RBC 3.42 L Hgb 10.6 L Hct 31.6 L MCV 92.4 MCH 31.1 MCHC 33.6 RDW 13.0 Plt Count 262 MPV 7.9 Neut % (Auto) 74.7 H Lymph % (Auto) 11.3 [place] % (Auto) 10.6 H Eos % (Auto) 2.7 Baso % (Auto) 0.7 Neut # (Auto) 5.9 Lymph # (Auto) 0.9 L [place] # (Auto) 0.8 Eos # (Auto) 0.2 Baso # (Auto) 0.1 WBC Differential . Differential Comment Auto diff final PT INR APTT Sodium 141 Potassium 3.4 L Chloride 107 Carbon Dioxide 28.5 Anion Gap 6 BUN 6 L Creatinine 0.62 Estimated GFR Greater than 89 Random Glucose 107 H Calcium 7.6 L D Total Bilirubin 0.5 AST 12 L ALT 15 Alkaline Phosphatase 63 Total Protein 6.6 D Albumin 2.6 L D Blood Type A Positive Blood Type Recheck Antibody Screen Negative - Imaging Impressions Knee X-Ray 05/18/18 00:00 CONCLUSION: Acute lateral tibial plateau fracture with mild compression and lateral downsloping. Chest X-Ray 05/18/18 19:28 CONCLUSION: No acute cardiopulmonary disease demonstrated. Knee CT 05/18/18 21:08 CONCLUSION: Lateral tibial plateau fracture with slight depression and no more than 1 mm of focal step-off. Assessment and Plan - Assessment (1) Fall Code(s): W19.XXXA - Unspecified fall, initial encounter Status: Acute (2) Knee fracture, left Status: Acute (3) Head lice Code(s): B85.0 - Pediculosis due to Pediculus humanus capitis Status: Inactive (4) Tibial plateau fracture, left Code(s): S82.142A - Displaced bicondylar fracture of left tibia, initial encounter for closed fracture Status: Acute - Plan 63-year-old female with 1. Fall: s/p mechanical fall, no head trauma or LOC, no other injuries reported. 2. Left tibial plateau Fx: X-ray w/ acute lateral tibial plateau fracture with mild compression and lateral downsloping, images reviewed. Appreciate input from orthopedic surgery, however recommended nonoperative management secondary to current diagnosis of head lice. Nonweightbearing left lower extremity. Pain management accordingly. Patient requested only Tylenol. 3. Head Lice: s/p Permethrin.
[2018-05-20] MEDS: Acetaminophen 325 MG Tablet PO PRN ×2 (04:15→21:25)
[2018-05-20] MEDS: Senna/Docusate Sodium 8.6/50 MG Tablet PO SCH ×2 (11:12→21:25)
--- NOTE | 2018-05-20 11:44 | P.PNIM ---
Subjective Interval history: The patient said her pain was a 0 out of 10. She said that she worked with physical therapy. She is currently homeless. Family at the bedside. Discussed with nursing. Physical Exam Vital signs: Vital Signs 05/19/18 12:00 05/19/18 16:00 05/19/18 20:00 Temperature 98.3 F 98.6 F Pulse Rate 86 80 Respiratory Rate 18 18 Blood Pressure 129/63 168/74 H Pulse Oximetry 100 98 95 05/19/18 20:01 05/19/18 23:49 05/20/18 04:23 Temperature 98.2 F 98.8 F 98.2 F Pulse Rate 65 84 86 Respiratory Rate 18 18 18 Blood Pressure 177/79 H 171/80 H 155/81 H Pulse Oximetry 95 97 96 05/20/18 08:00 Temperature 98.2 F Pulse Rate 82 Respiratory Rate 20 Blood Pressure 155/80 H Pulse Oximetry 100 Intake & Output 05/19/18 05/20/18 05/20/18 18:59 06:59 18:59 Intake Total 1480 / 1480 Balance 1480 / 1480 Weight 63.8 kg Intake: IV 1000 / 1000 LR 1000 mL Inj 1,000 ML @ 30 1000 / 1000 mls/hr IV.SIG .Q24H [facility] Rx#: [id number] Oral 480 / 480 Other: # Voids 2 3 Date of Last Bowel Movement 05/17/18 05/19/18 # Bowel Movements 0 Narrative: GENERAL: NAD SKIN: Warm and dry. HEAD: Normocephalic. EYES: No scleral icterus. No injection or drainage. NECK: Supple, trachea midline. No JVD or lymphadenopathy. CARDIOVASCULAR: Regular rate and rhythm without murmurs, gallops, or rubs. RESPIRATORY: Breath sounds equal bilaterally. No accessory muscle use. GASTROINTESTINAL: Abdomen soft, non-tender, nondistended. MUSCULOSKELETAL: No cyanosis. Edema in LLE, mild tenderness. BACK: Nontender without obvious deformity. No CVA tenderness. Results - Labs CBC & Chem 7: 05/19/18 05:30 05/19/18 05:30 Assessment and Plan - Assessment (1) Fall Code(s): W19.XXXA - Unspecified fall, initial encounter Status: Acute (2) Knee fracture, left Status: Acute (3) Head lice Code(s): B85.0 - Pediculosis due to Pediculus humanus capitis Status: Inactive (4) Tibial plateau fracture, left Code(s): S82.142A - Displaced bicondylar fracture of left tibia, initial encounter for closed fracture Status: Acute - Plan Left tibial plateau Fx S/p mechanical fall, no head trauma or LOC, no other injuries reported. X-ray w / acute lateral tibial plateau fracture with mild compression and lateral downsloping. Appreciate input from orthopedic surgery, however, recommended nonoperative management secondary to current diagnosis of head lice. -Nonweightbearing left lower extremity. -Pain management accordingly. -follow up with orthopedic surgery. -PT. Head lice Seen in ER earlier for c/o head lice, +live lice noted on exam. D/c'd on Bactrim. S/p permethrin. -continue Bactrim. Social issues Pt is currently homeless. She also needs to go to court on Monday. -briefcase sewer consulted. -will write a note stating pt is in hospital if unable to attend court hearing on Monday. DVT Prophylaxis: Anticoagulation per ortho
[2018-05-20 22:36] LABS: Calcium 8.4 mg/dL (8.5-10.1); Carbon Dioxide 30.2 meq/L (21.0-32.0); Potassium 3.9 meq/L (3.5-5.1)
[2018-05-21 05:39] VITALS: PULSE 71
--- NOTE | 2018-05-21 06:34 | P.PNOP ---
Subjective Interval history: Resting comfortably with no new complaints Physical Exam Vital signs: Vital Signs 05/20/18 08:00 05/20/18 12:00 05/20/18 16:00 Temperature 98.2 F 98.5 F 98.1 F Pulse Rate 82 86 77 Respiratory Rate 20 17 13 Blood Pressure 155/80 H 165/81 H 136/77 Pulse Oximetry 100 100 100 05/20/18 19:41 05/20/18 23:50 05/21/18 03:49 Temperature 98.9 F 98.3 F 98.7 F Pulse Rate 81 86 71 Respiratory Rate 18 18 18 Blood Pressure 176/76 H 164/78 H 155/75 H Pulse Oximetry 96 95 98 Intake & Output 05/20/18 05/20/18 05/21/18 06:59 18:59 06:59 Intake Total 1480 / 1480 620 / 620 480 / 480 Balance 1480 / 1480 620 / 620 480 / 480 Weight 63.8 kg 63.8 kg Intake: IV 1000 / 1000 LR 1000 mL Inj 1,000 ML @ 30 1000 / 1000 mls/hr IV.SIG .Q24H [facility] Rx#: [id number] Oral 480 / 480 480 / 480 Other 620 / 620 Other: # Voids 3 3 Date of Last Bowel Movement 05/17/18 05/19/18 05/19/18 # Bowel Movements 0 0 Narrative: Left lower extremity: Knee immobilizer in place. Swelling improved. Distally intact sensation with active dorsiflexion and plantarflexion of foot Results - Labs CBC & Chem 7: 05/19/18 05:30 05/20/18 21:47 Laboratory Results - last 24 hr 05/20/18 21:47 Sodium 140 Potassium 3.9 Chloride 104 Carbon Dioxide 30.2 Anion Gap 6 BUN 11 Creatinine 0.83 Estimated GFR 70 L Random Glucose 105 Calcium 8.4 L D Assessment and Plan - Problem List (1) Knee fracture, left Status: Acute - Assessment and Plan 1) Left Tibial Plateau Fracture 2) Head Lice Infestation Nonweightbearing left lower extremity Knee immobilizer at all times with no active leg lifts or quad sets Case management for discharge plan We will re-x-ray in 10-14 days to evaluate fracture alignment. If fracture maintains position we will continue to treat this nonoperatively
[2018-05-21] MEDS: Senna/Docusate Sodium 8.6/50 MG Tablet PO SCH (09:44)
--- NOTE | 2018-05-21 13:35 | P.DS ---
Date of admission: 05/18/18 20:58 Primary care physician: No Primary Care Physician Brief History from admission: This is a 63-year-old female with no significant PMH who presented to the ER with left knee pain after fall. Patient was seen in the ER earlier today for complaints of head lice and was d/c'd on Bactrim, states she was walking home when she tripped over a pipe on the sidewalk. No head trauma or LOC. Reports severe left knee pain, 8/10, non-radiating, worse w/ movement. States she took 2 Tylenol prior to arrival w/ improvement. BP 159/76, HR 92, O2 sat 100% on RA , Afebrile. CBC essentially unremarkable. INR 1.0. Chemistry unremarkable except for GFR 83. Knee X-ray with acute lateral tibial plateau fracture with mild compression and lateral downsloping. CXR no acute findings. Dr. Barksdale consulted, plan is for surgical intervention in am. DS: Diagnosis - Discharge Diagnosis (1) Fall Status: Acute (2) Knee fracture, left Status: Acute (3) Head lice Status: Inactive (4) Tibial plateau fracture, left Status: Acute DS: Medications - Discharge Medications Prescriptions: hydrocodone-acetaminophen 1 tab PO Q6H PRN #12 tab PRN Reason: Pain DS: Summary Hospital Course: Left tibial plateau Fx S/p mechanical fall, no head trauma or LOC, no other injuries reported. X-ray w / acute lateral tibial plateau fracture with mild compression and lateral downsloping. Orthopedic surgery recommended nonoperative management secondary to current diagnosis of head lice. Nonweightbearing left lower extremity was recommended. She received pain control. She worked with PT. She will follow up with orthopedic surgery. A wheelchair and walker were provided with the assistance of case management. Head lice Seen in ER for c/o head lice, +live lice noted on exam. D/c'd on Bactrim. S/p permethrin. She will continue Bactrim. - Time Spent with Patient Total time spent providing and/or coordinating discharge services: Greater than 30 minutes - Quality: VTE Deep Vein Thrombosis/Pulmonary Embolism Present on Admission: No Exam Vital signs: Vital Signs 05/20/18 16:00 05/20/18 19:41 05/20/18 23:50 Temperature 98.1 F 98.9 F 98.3 F Pulse Rate 77 81 86 Respiratory Rate Blood Pressure 136/77 176/76 H 164/78 H Pulse Oximetry 100 96 95 05/21/18 03:49 Temperature 98.7 F Pulse Rate 71 Respiratory Rate 18 Blood Pressure 155/75 H Pulse Oximetry 98 Intake & Output 05/20/18 05/21/18 05/21/18 18:59 06:59 18:59 Intake Total 620 / 620 480 / 480 Balance 620 / 620 480 / 480 Weight 63.8 kg Intake: Oral 480 / 480 Other 620 / 620 Other: # Voids 3 Date of Last Bowel Movement 05/19/18 05/19/18 # Bowel Movements 0 Narrative: GENERAL: NAD SKIN: Warm and dry. HEAD: Normocephalic. EYES: No scleral icterus. No injection or drainage. NECK: Supple, trachea midline. No JVD or lymphadenopathy. CARDIOVASCULAR: Regular rate and rhythm without murmurs, gallops, or rubs. RESPIRATORY: Breath sounds equal bilaterally. No accessory muscle use. GASTROINTESTINAL: Abdomen soft, non-tender, nondistended. MUSCULOSKELETAL: No cyanosis. Edema in LLE, mild tenderness. BACK: Nontender without obvious deformity. No CVA tenderness. Results Procedures completed during hospitalization: None Labs on day of discharge: Labs from last 24 hours 05/20/18 21:47 Sodium 140 Potassium 3.9 Chloride 104 Carbon Dioxide 30.2 Anion Gap 6 BUN 11 Creatinine 0.83 Estimated GFR 70 L Random Glucose 105 Calcium 8.4 L D - Impressions ITS Impressions Knee X-Ray 05/18/18 00:00 CONCLUSION: Acute lateral tibial plateau fracture with mild compression and lateral downsloping. Chest X-Ray 05/18/18 19:28 CONCLUSION: No acute cardiopulmonary disease demonstrated. Knee CT 05/18/18 21:08 CONCLUSION: Lateral tibial plateau fracture with slight depression and no more than 1 mm of focal step-off. Discharge Plan - Discharge Disposition Patient Disposition: 01 Discharge Home - Discharge Condition Condition: Stable - Discharge Order Discharge Orders: Discharge Order (Routine); Ordered 05/21/18 Ordered By: Joe Hernandez - Discharge Details Anticipated Discharge Date: 05/21/18 - Physicians Team Primary Care Provider: Primary Care Mazin,Hilda Attending Provider: Joe Hernandez Other Providers: Lacho Barksdale MD
[2018-05-21 15:04] VITALS: BP 158/94; RESP 16; TEMP 98.6; O2SAT 100
== END 2018-05-21 19:02 | disposition home or self-care (01) ==
LOC: NEPD 14:45 → NEDA 20:58 → N06 22:23
PROVIDERS: ADMIT Hospitalist; ATTEND Hospitalist